=== PATIENT | female | born 1965 | race Caucasian/White ===

== ENCOUNTER 2017-09-01 11:04 | Day surgery (SDC) | payer OTHER ==
[~2017-09-01] VITALS: Ht 154.9 cm; Wt 72.6 kg
[~2017-09-01 11:04] MED LIST: ALLEGRA D PO; FERR325 PO; FEXOFENADINE; OMEP20ER PO; PANT40 PO; PSEUDOEPHEDRINE; SERT50 PO; TRAZ50 PO
[2017-09-01] MEDS ORDERED: PROBIOTIC1 EAC1 PO (12:12)
[2017-09-01] MEDS ORDERED: TOLT2 PO (12:12)
[2017-09-01] MEDS ORDERED: CLARITIN-D 121 EACH (12:13)
[2017-09-01] MEDS ORDERED: PSEU120ER (12:14)
== END 2017-09-01 17:50 | disposition home or self-care (01) ==
LOC: ORSCSDS 11:04
PROVIDERS: Otolaryngology
PROC: 09DU4ZZ Extraction of Right Ethmoid Sinus, Percutaneous Endoscopic Approach (ICD-10-PCS; principal; 2017-09-01 12:15)
PROC: 09SM0ZZ Reposition Nasal Septum, Open Approach (ICD-10-PCS; principal; 2017-09-01 12:15)
PROC: 8E09XBZ Computer Assisted Procedure of Head and Neck Region (ICD-10-PCS; principal; 2017-09-01 12:15)
PROC: 09DV4ZZ Extraction of Left Ethmoid Sinus, Percutaneous Endoscopic Approach (ICD-10-PCS; principal; 2017-09-01 12:15)
DX: J32.4 Chronic pansinusitis (principal); J34.2 Deviated nasal septum; J34.3 Hypertrophy of nasal turbinates; G47.33 Obstructive sleep apnea (adult) (pediatric); Z79.899 Other long term (current) drug therapy
CPT/HCPCS: 88305; 88311; C2625; J0171; J1100; J1885; J2405; J2550; J2710; J3010; J3301; J7120

== ENCOUNTER → 2018-04-26 | Outpatient (CLI) | payer OTHER ==
[~2018-04-26] MED LIST changes: +CLARITIN-D 121 EACH; +PROBIOTIC1 EAC1 PO; +PSEU120ER; +TOLT2 PO
== END | disposition home or self-care (01) ==
LOC: LAB SHORT 09:16 → LAB EV 09:16
DX: N39.0 Urinary tract infection, site not specified (principal)
CPT/HCPCS: 87086

== ENCOUNTER → 2018-11-02 | Outpatient (CLI) | payer OTHER | END | disposition home or self-care (01) | LOC: LAB SHORT 09:56 → LAB EV 09:56 | DX: N39.0 Urinary tract infection, site not specified (principal) | CPT/HCPCS: 87077; 87086; 87186 ==

== ENCOUNTER → 2019-06-23 | Outpatient (CLI) | payer OTHER | END | disposition home or self-care (01) | LOC: LAB SHORT 10:51 → LAB EV 10:51 | DX: J02.0 Streptococcal pharyngitis (principal) | CPT/HCPCS: 87081 ==

== ENCOUNTER → 2019-07-15 | Outpatient (CLI) | payer OTHER ==
[2019-07-15 16:48] LABS: BASOPHILS ABSOLUTE AUTO 0.02 K/mm3 (0.00-0.23); BASOPHILS PERCENT AUTO 0 % (0-2); EOSINOPHILS ABSOLUTE AUTO 0.09 K/mm3 (0.00-0.68); EOSINOPHILS PERCENT AUTO 1 % (0-6); Hematocrit 36.5 % (33.0-51.0); Hemoglobin 12.5 g/dL (11.5-16.0); IMMATURE GRAN ABSOLUTE AUTO 0.01 K/mm3 (0.00-0.10); IMMATURE GRAN PERCENT AUTO 0 % (0-1); LYMPHOCYTES ABSOLUTE AUTO 1.99 K/mm3 (0.84-5.20); LYMPHOCYTES PERCENT AUTO 26 % (21-46); MONOCYTES PERCENT AUTO 7 % (4-13); Mean Corpuscular HGB 30.8 pg (26.0-34.0); Mean Corpuscular HGB Conc 34.2 g/dL (31.5-36.5); Mean Corpuscular Volume 90 fL (80-100); Mean Platelet Volume 9.7 fL (9.1-12.4); NEUTROPHILS ABSOLUTE AUTO 4.95 K/mm3 (1.96-9.15); NEUTROPHILS PERCENT AUTO 66 % (41-73); Platelet Count 196 K/mm3 (150-400); RDW Coefficient Variation 13.2 % (11.7-14.2); RDW Standard Deviation 43.4 fL (35.1-46.3); Red Blood Cell Count 4.06 M/mm3 (3.80-5.20); White Blood Cell Count 7.56 K/mm3 (4.00-11.30)
[2019-07-15 17:08] LABS: Alanine Aminotransfer (ALT/SGP 19 U/L (12-78); Albumin, Blood 4.1 g/dL (3.4-5.0); Albumin/Globulin Ratio 1.4 (0.8-1.8); Alk Phos 84 U/L (40-126); Anion Gap 12 mmol/L (6-16); Aspartate Aminotrans (AST/SGOT 17 U/L (12-37); Bilirubin, Total 0.4 mg/dL (0.1-1.0); Blood Urea Nitrogen 18 mg/dL (8-24); CO2, Blood 24 mmol/L (21-32); Calcium, Blood 8.9 mg/dL (8.5-10.1); Chloride, Blood 105 mmol/L (98-108); Creatinine, Blood 0.75 mg/dL (0.40-1.00); Globulin, Blood 2.9 g/dL (2.2-4.0); Glomerular Filtration Rate >60 (60-); Glucose, Blood 93 mg/dL (70-99); Potassium, Blood 3.5 mmol/L (3.5-5.5); Sodium, Blood 141 mmol/L (136-145)
== END | disposition home or self-care (01) ==
LOC: LAB SHORT 16:44 → LAB EV 16:44
PROVIDERS: Physician Assistant
DX: R53.83 Other fatigue (principal)
CPT/HCPCS: 80053; 84443; 85025

== ENCOUNTER 2020-06-08 07:06 | Day surgery (SDC) | payer OTHER ==
[~2020-06-08] VITALS: Ht 154.9 cm; Wt 72.7 kg
[~2020-06-08 07:06] MED LIST changes: +ALBU90OI INH; +CALCIUM 600 MG1 EAC4 PO; +DELTASONE20 MG PO; +EPIPEN0.3 MG/0.1; +FLONASE ALLERG9.9 M2 INH; +Loratadine10 MG; +MULTIVITAMINS1 EAC3 PO; +Ranitidine HCl150 M1 PO
--- NOTE | 2020-06-08 08:46 | NUR ---
06/08/20 0846 Dot [employer] 30MG EPI USED TO SOAK PLEDGETS FOR PACKING.
== END 2020-06-08 11:59 | disposition home or self-care (01) ==
LOC: ORSCSDS 07:06
PROVIDERS: Otolaryngology
PROC: 099S8ZZ Drainage of Right Frontal Sinus, Via Natural or Artificial Opening Endoscopic (ICD-10-PCS; principal; 2020-06-08 08:15)
PROC: 099Q8ZZ Drainage of Right Maxillary Sinus, Via Natural or Artificial Opening Endoscopic (ICD-10-PCS; principal; 2020-06-08 08:15)
PROC: 099V8ZZ Drainage of Left Ethmoid Sinus, Via Natural or Artificial Opening Endoscopic (ICD-10-PCS; principal; 2020-06-08 08:15)
PROC: 099T8ZZ Drainage of Left Frontal Sinus, Via Natural or Artificial Opening Endoscopic (ICD-10-PCS; principal; 2020-06-08 08:15)
PROC: 099R8ZZ Drainage of Left Maxillary Sinus, Via Natural or Artificial Opening Endoscopic (ICD-10-PCS; principal; 2020-06-08 08:15)
PROC: 099X8ZZ Drainage of Left Sphenoid Sinus, Via Natural or Artificial Opening Endoscopic (ICD-10-PCS; principal; 2020-06-08 08:15)
PROC: 099W8ZZ Drainage of Right Sphenoid Sinus, Via Natural or Artificial Opening Endoscopic (ICD-10-PCS; principal; 2020-06-08 08:15)
PROC: 099U8ZZ Drainage of Right Ethmoid Sinus, Via Natural or Artificial Opening Endoscopic (ICD-10-PCS; principal; 2020-06-08 08:15)
DX: J32.8 Other chronic sinusitis (principal); J45.909 Unspecified asthma, uncomplicated; F41.8 Other specified anxiety disorders; Z79.899 Other long term (current) drug therapy
CPT/HCPCS: C2625; J0171; J1100; J2001; J2250; J2370; J2405; J2704; J2710; J3010; J7120

== ENCOUNTER → 2020-09-29 | Outpatient (CLI) | payer OTHER | LOC: LAB SHORT 08:01 → LAB EV 08:01 | DX: N39.0 Urinary tract infection, site not specified (principal) | CPT/HCPCS: 87077; 87086; 87186 ==

== ENCOUNTER → 2022-05-05 | Outpatient (CLI) | payer OTHER | END | disposition home or self-care (01) | LOC: LAB 15:53 → LAB SHORT 15:53 | DX: N39.0 Urinary tract infection, site not specified (principal) | CPT/HCPCS: 87077; 87086; 87186 ==